=== PATIENT | male | born 1955 | race Caucasian/White ===

== ENCOUNTER 2020-10-19 13:22 | Emergency (ER) | payer MEDICARE, SELFPAY ==
[2020-10-19 13:35] VITALS: BP 146/84; PULSE 95; RESP 18; TEMP 36.8; O2SAT 98; BMI 29.0
--- NOTE | 2020-10-19 14:17 | HMH.EDUTC ---
[facility] [place] Clinical Impression: UTI (urinary tract infection) Qualifiers: Urinary tract infection type: site unspecified Hematuria presence: without hematuria Qualified Code(s): N39.0 - Urinary tract infection, site not specified Disposition: Home, Self-Care Condition on Discharge: Good Instructions: Urinary Tract Infection, DI for Urinary Tract Infection (UTI), Cefdinir Additional Instructions: *Increase fluids. Water not Soda or Tea *Start antibiotic immediately and be sure to take as ordered for the FULL length of time although you should start to see improvement over the next 48 hours *Be SURE to follow up anytime for new or worsening symptoms with your family doctor. AND in 48 hours for urine culture results with your family doctor, if you do not have a doctor then you may call back to the [facility] for urine culture results and further treatment. We do recommend that you choose and establish care with a Primary Care Physician. AND follow up with them in 10-14 days to repeat UA to ensure infection is resolved and blood no longer present *Be sure to let your PCP know that we sent urine cultures from the [facility] so they can follow up to ensure that you area the on the correct antibiotic Call your doctor office and make appointment for 48 hours (2 days from today) to follow up and get the results of your urine culture and further treatment Make sure to follow for your urine culture results and stop medication if no growth of bacteria Return if needed Follow up with your Family Doctor if no improvement or any worsening of symptoms Prescriptions: Cefdinir [Omnicef 300mg Capsule] 300 mg PO BID #20 cap Transmission Status: Pending to [id number] Referrals: Jocelyn Khan MD [Primary Care Provider] - As needed Time of Disposition: 14:26 Medical Decision Making - Ryan Inquiry Pt receiving controlled substance: No Ryan was queried for this patient: No Vital Signs: 10/19/20 13:35 Temperature 98.2 F Temperature Source Oral Pulse Rate [Right Brachial] 95 H Respiratory Rate 18 Blood Pressure [Right Arm] 146/84 H Blood Pressure Mean [Right Arm] 104 Blood Pressure Source [Right Arm] Automatic Cuff Blood Pressure Position [Right Arm] Sitting 02 Sat by Pulse Oximetry 98 Oxygen Delivery Method Room Air - Lab Data Lab results reviewed: Yes: I reviewed the patient's lab results. [facility] [place] HPI - General Stated complaint: possible UTI Time Seen by Provider: 10/19/20 14:17 Mode of Arrival: Ambulatory Source of Information: Patient Limitations: No Limitations Description of Symptoms (Recalled from Triage Doc. by RN): PATIENT C/O POSSIBLE UTI AND/OR PROSTATE PROBLEMS HEENT Symptoms (Recalled from RN notes): No Resp Symptoms (Recalled from RN notes): No Skin Symptoms (Recalled from RN notes): No MS Symptoms (Recalled from RN notes): No Functional Status (Recalled from RN notes): WNL - History of Present Illness Provider Complaint: Patient state that he thinks he may have a UTI States that he has been having urinary frequency and urgency and only urinating small amounts at a time State that he has also been having some burning with urination and similar to when he had a UTI many years ago Denies fever denies blood in urine - Related Data Previous Rx's Medication Instructions Recorded Cefdinir [Omnicef 300mg Capsule] 300 mg PO BID #20 cap 10/19/20 Allergies Allergy/AdvReac Type Severity Reaction Status Date / Time No Known Allergies Allergy Verified 10/19/20 14:10 - Worker's Comp Is this a Worker's Comp case?: No [facility] History - Hepatitis A Screen Drug use history?: No High risk sexual behaviors?: No History of sexually transmitted infection?: No Currently employed?: No Childcare worker?: No Do you have indoor plumbing?: Yes Do you have electricity?: Yes Attestation statement:: This patient has been screened for Hepatitis A risk factors. I have reviewed the patient's past medical histo
[2020-10-19 14:33] VITALS: BP 146/84; PULSE 95; RESP 18; TEMP 36.8; O2SAT 98
[2020-10-19 20:26] LABS: Apearance,Urine Clear (Clear); Bilirubin,Urine Negative (Negative); Blood, Urine Negative (Negative); Color,Urine Yellow (Yellow); Glucose,Urine (UA) Negative (Negative); Ketones,Urine Negative (Negative); Protein,Urine Negative (Negative); Specific Gravity, Urine 1.025 (1.005-1.030); UTC Leukocyte Esterase,Urine Trace (Negative); Urobilinogen,Urine 0.2 EU/dl (0.2)
[2020-10-19 20:27] LABS: UTC Nitrate,Urine Negative (Negative)
== END 2020-10-19 14:35 | disposition home or self-care (01) ==
PROVIDERS: Emergency Provider Nurse Practitioner; PCP Family Medicine
DX: N30.00 Acute cystitis without hematuria (principal); E78.5 Hyperlipidemia, unspecified; I10 Essential (primary) hypertension
CPT/HCPCS: G0463; 81003; 87086; 87088; 87186; 99202

== ENCOUNTER 2021-06-16 15:09 | Emergency (ER) | payer MEDICARE, SELFPAY ==
[2021-06-16 15:19] VITALS: BP 170/90; PULSE 94; RESP 18; O2SAT 98; BMI 31.6
[2021-06-16 15:41] VITALS: BP 175/91; PULSE 95; RESP 16; TEMP 36.8; O2SAT 95; BMI 31.6
--- NOTE | 2021-06-16 16:08 | HMH.EDUTC ---
[facility] [place] Impression: Low back pain with sciatica Qualifiers: Chronicity: acute Back pain laterality: left Sciatica laterality: sciatica of left side Qualified Code(s): M54.42 - Lumbago with sciatica, left side Disposition: Home, Self-Care Condition on Discharge: Good Instructions: DI for Low Back Pain, DI for Back Pain With Sciatica Additional Instructions: Go home and rest. It would be best if you rested tomorrow too. No heavy lifting. No twisting. Take the oral medications as directed. The muscle relaxer (cyclobenzaprine-flexeril) will make you drowsy, so don't drive or operate heavy machinery after taking it. Don't start the oral steroids (medrol dose pack) until tomorrow, since you had the shots in here today. Follow up with your regular doctor. GO TO THE ER FOR ANY WORSENING SYMPTOMS OR CONCERN, ESPECIALLY BOWEL OR BLADDER ISSUES, SADDLE AREA NUMBNESS, FEVER, ETC Prescriptions: Cyclobenzaprine HCl [Cyclobenzaprine 10mg Tab] 10 mg PO BIDP PRN #20 tab PRN Reason: Muscle Spasm Transmission Status: Pending to [id number] methylPREDNISolone [Medrol] 4 mg PO DIRECTED 6 Days #21 packet Transmission Status: Pending to [id number] Referrals: Jocelyn Khan MD [Primary Care Provider] - Time of Disposition: 16:26 Medical Decision Making - Medical Records Medical records reviewed: No: I reviewed the patient's medical records. - Ryan Inquiry Pt receiving controlled substance: No Vital Signs: 06/16/21 15:19 06/16/21 15:41 Temperature 98.3 F Temperature Source Oral Pulse Rate [Left Radial] 94 H 95 H Respiratory Rate 18 16 Blood Pressure [Right Arm] 170/90 H 175/91 H Blood Pressure Mean [Right Arm] 116 119 Blood Pressure Source [Right Arm] Automatic Cuff Automatic Cuff Blood Pressure Position [Right Arm] Sitting Sitting 02 Sat by Pulse Oximetry 98 95 Oxygen Delivery Method Room Air Room Air [facility] [place] - General Stated complaint: back pain no accident Time Seen by Provider: 06/16/21 16:08 Mode of Arrival: Ambulatory Source of Information: Patient Limitations: No Limitations Description of Symptoms (Recalled from Triage Doc. by RN): back pain HEENT Symptoms (Recalled from RN notes): No Resp Symptoms (Recalled from RN notes): No Skin Symptoms (Recalled from RN notes): No MS Symptoms (Recalled from RN notes): Yes Functional Status (Recalled from RN notes): na - History of Present Illness Provider Complaint: He states that for the past 3 days he has had left lower back pain that radiates down his left leg. He denies any known injury. He has a history of this pain that flares up at times. - Related Data Previous Rx's Medication Instructions Recorded Cefdinir [Omnicef 300mg Capsule] 300 mg PO BID #20 cap 10/19/20 Cyclobenzaprine HCl 10 mg PO BIDP PRN #20 tab 06/16/21 [Cyclobenzaprine 10mg Tab] methylPREDNISolone [Medrol] 4 mg PO DIRECTED 6 Days #21 06/16/21 packet Allergies Allergy/AdvReac Type Severity Reaction Status Date / Time No Known Allergies Allergy Verified 10/19/20 14:10 - Worker's Comp Is this a Worker's Comp case?: No Is this an H Worker's Comp?: No Is this a Gian Worker's Comp?: No H History - Hepatitis A Screen Drug use history?: No High risk sexual behaviors?: No History of sexually transmitted infection?: No Currently employed?: No Childcare worker?: No Do you have indoor plumbing?: Yes Do you have electricity?: Yes Attestation statement:: This patient has been screened for Hepatitis A risk factors. I have reviewed the patient's past medical history: Yes Medical History: Reports:: Diabetes Mellitus Type 2 - Social History Alcohol Intake: never Occupational Status: other ROS Obtained: Yes All systems reviewed & no additional complaints - Constitutional Constitutional: Denies chills, Denies fever(s) - Eyes Eyes: Denies eye discharge - ENT Ears, Nose, Mouth, and Throat: Denies d
[2021-06-16 16:35] VITALS: BP 175/91; PULSE 95; RESP 18; TEMP 36.8; O2SAT 95
== END 2021-06-16 16:38 | disposition home or self-care (01) ==
PROVIDERS: Emergency Provider Nurse Practitioner Family; PCP Family Medicine
DX: M54.42 Lumbago with sciatica, left side (principal); E11.9 Type 2 diabetes mellitus without complications
CPT/HCPCS: G0463; 99211

== ENCOUNTER 2021-06-23 22:02 | Emergency (ER) | payer MEDICARE, SELFPAY ==
[2021-06-23 22:16] VITALS: BP 162/97; PULSE 88; RESP 16; TEMP 36.6; O2SAT 96; BMI 31.8
--- NOTE | 2021-06-23 22:32 | HMH.EDBACK ---
ED Disposition Clinical Impression: Lumbar radiculopathy Disposition: Home, Self-Care Condition on Discharge: Good Instructions: DI for Back Pain With Sciatica Additional Instructions: call pcp this pm Referrals: Jocleyn Khan MD [Primary Care Provider] - - Critical Care Critical Care Time: No Attestation: On 06/23/21, the high probability of a clinically significant, sudden or life threatening deterioration of the following system(s) required my full and direct attention, intervention and personal management. The time I documented below is in addition to time spent performing reported procedures but includes the following listed in this critical care notation. Medical Decision Making - Medical Records Medical records reviewed: Yes: I reviewed the patient's medical records. - Ryan Inquiry Pt receiving controlled substance: No Vital Signs: 06/23/21 22:16 Temperature 97.8 F Temperature Source Oral Pulse Rate [Right Brachial] 88 Respiratory Rate 16 Blood Pressure [Right Arm] 162/97 H Blood Pressure Mean [Right Arm] 118 Blood Pressure Source [Right Arm] Automatic Cuff Blood Pressure Position [Right Arm] Sitting 02 Sat by Pulse Oximetry 96 Oxygen Delivery Method Room Air - Lab Data Lab results reviewed: Yes: I reviewed the patient's lab results. Orders (Tests/Meds): ORDERS Category Date Time Status XR lumbar spine 2-3V Stat Exams 06/23/21 22:39 Ordered XR pelvis 1-2V Stat Exams 06/23/21 22:39 Ordered XR thoracic spine 3V Stat Exams 06/23/21 22:39 Ordered - Radiology Data #1 Image(s): T-Spine, L-Spine, Pelvis Image Reviewed: Yes I reviewed the patient's radiology image Preliminary Findings: No Fracture Seen Medical Decision Narrative: will ask pt to see pcp this week Back Pain HPI - General Chief Complaint: Back Pain/Injury Stated Complaint: hip and back pain Time Seen by Provider: 06/23/21 22:32 Mode of Arrival: Family Vehicle Source of Information: Patient, Medical Record Limitations: No Limitations Description of Symptoms (Recalled from ER Triage Doc. by RN): seen in [facility] for sciatica and treated with steroids, muscle relaxers and NSAIDS. stated he has finished his steroids and has not followed up with pcp but still hurts and needs relief. pain is primarily low back and hip area. - History of Present Illness HPI Narrative: pt with acute back with no fall with rad to lt leg - no fever/rash or trauma MD Complaint: back pain Onset (ago): day(s) Similar Symptoms Previously: Yes Location: lumbar spine Severity: moderate Exacerbating factors: movement Context: bending Associated symptoms: denies other symptoms - Related Data Previous Rx's Medication Instructions Recorded Cefdinir [Omnicef 300mg Capsule] 300 mg PO BID #20 cap 10/19/20 Cyclobenzaprine HCl 10 mg PO BIDP PRN #20 tab 06/16/21 [Cyclobenzaprine 10mg Tab] methylPREDNISolone [Medrol] 4 mg PO DIRECTED 6 Days #21 06/16/21 packet Allergies Allergy/AdvReac Type Severity Reaction Status Date / Time No Known Allergies Allergy Verified 10/19/20 14:10 [facility] History - Hepatitis A Screen Drug use history?: No High risk sexual behaviors?: No History of sexually transmitted infection?: No Currently employed?: No Childcare worker?: No Do you have indoor plumbing?: Yes Do you have electricity?: Yes Attestation statement:: This patient has been screened for Hepatitis A risk factors. I have reviewed the patient's past medical history: Yes Medical History: Reports:: Diabetes Mellitus Type 2 - Social History Alcohol Intake: never Occupational Status: other ROS Obtained: Yes All systems reviewed & no additional complaints - Constitutional Constitutional: Denies fever(s) - Eyes Eyes: Denies change in vision - ENT Ears, Nose, Mouth, and Throat: Denies sore throat - Cardiovascular Cardiovascular: Denies chest pain - Respiratory Respiratory: Denies shortness of breath - G
--- NOTE | 2021-06-23 22:39 | XR_ITS ---
PROCEDURE INFORMATION: Exam: XR Lumbosacral Spine Exam date and time: 06/23/2021 10:39 PM Age: 65 years old Clinical indication: Sciatica; Patient HX: Pain around si joint on left side and radiates to upper part of left leg, no known injury, pain for 1 month; Additional info: Left side pain TECHNIQUE: Imaging protocol: XR of the lumbosacral spine. Views: 2 or 3 views. COMPARISON: CR XR PELVIS 1-2V 06/23/2021 10:49 PM FINDINGS: Bones/joints: Mild levoconvex lumbar curvature. No spondylolisthesis. Slight anterior wedging of T12 and L1 appears chronic and is likely physiologic. No evidence of acute fracture. Moderate disc height loss at L5-S1 with vacuum phenomenon. Nxon-ir-phndaivl disc height loss at the remaining lumbar levels, with vacuum phenomenon also present at L4-L5. Multilevel facet osteoarthropathy, which appears moderate to advanced at L4-L5 and L5-S1. Soft tissues: Unremarkable. IMPRESSION: 1. No acute finding. 2. Spondylosis, greatest at the lower lumbar levels.
--- NOTE | 2021-06-23 22:39 | XR_ITS ---
PROCEDURE INFORMATION: Exam: XR Pelvis Exam date and time: 06/23/2021 10:39 PM Age: 65 years old Clinical indication: Pelvic pain; Patient HX: Pain around si joint on left side and radiates to upper part of left leg, no known injury, pain for 1 month; Additional info: Left side pain TECHNIQUE: Imaging protocol: XR pelvis. Views: 1 or 2 view. COMPARISON: No relevant prior studies available. FINDINGS: Bones/joints: Bilateral hip joints appear preserved. Minimal degenerative spurring of the SI joints. Lower lumbar spondylosis. No acute displaced fracture. Soft tissues: Phleboliths in the pelvis. IMPRESSION: 1. No acute finding. 2. Bilateral hip joints are preserved. Minimal SI joint degenerative spurring.
--- NOTE | 2021-06-23 22:39 | XR_ITS ---
PROCEDURE INFORMATION: Exam: XR Thoracic Spine Exam date and time: 06/23/2021 10:39 PM Age: 65 years old Clinical indication: Pain in thoracic spine; Patient HX: Pain around si joint on left side and radiates to upper part of left leg, no known injury, pain for 1 month; Additional info: Left side pain TECHNIQUE: Imaging protocol: XR of the thoracic spine. Views: 3 views. COMPARISON: No relevant prior studies available. FINDINGS: Bones/joints: Mild chronic-appearing anterior wedging of midthoracic vertebral bodies. No evidence of acute fracture. No spondylolisthesis. Mild multilevel thoracic degenerative disc disease. Partially visualized cervical spondylosis, greatest at C5-C6 and C6-C7. Soft tissues: Unremarkable. IMPRESSION: 1. No evidence of acute fracture. 2. Mild chronic-appearing anterior wedging of midthoracic vertebral bodies. 3. Mild thoracic spondylosis. Partially visualized cervical spine degenerative changes.
[2021-06-23 23:29] VITALS: BP 161/91; PULSE 84; RESP 16; TEMP 36.7; O2SAT 97
== END 2021-06-23 23:31 | disposition home or self-care (01) ==
PROVIDERS: Emergency Provider Emergency Medicine; PCP Family Medicine
DX: M54.16 Radiculopathy, lumbar region (principal); E11.9 Type 2 diabetes mellitus without complications
CPT/HCPCS: 72072; 72100; 72170; 96372; 99282

== ENCOUNTER 2021-08-28 14:00 | Outpatient (RCR) | payer MEDICARE, SELFPAY ==
--- NOTE | 2021-07-31 14:26 | HMH.RHREAS ---
Rehab Reassessment Rehab OP Re-assessment Start: 07/31/21 14:19 Freq: Status: Active Protocol: Document 07/31/21 14:19 STEPHANIE (Rec: 07/31/21 14:25 STEPHANIE [id number]) Electronically Signed By Shaan Mckenzie, PT 07/31/21 14:19 Rehab Re-assessment Subjective Subjective Patient reports 65% improvement since start of care. Objective Objective Notes AROM: WFL MMT: WNL Pain: 0/10 today; 4/10 at worst Neuro: decreased LLE radicular symptoms Assessment Progress Assessment Progressing as Expected Assessment Notes Patient has made significant improvements as noted above. Rx has consisted of BLE stretching, core stabilization , mechanical traction and modalities for pain modulation . Patient has had to make work activity modification to avoid exacerbations. Patient continues to have functional limitations with bending, lifting and twisting activities. Patient goals met STG's Goals Not Met LTG's Revised Goals NA Plan Plan Continue with current POC. Frequency of Therapy 2x/week Duration of therapy 4 weeks Time and Billing Re-Eval Time 15 Re-Eval Billing Units 1 PHYSICIAN CERTIFICATION: I certify the specified therapy services for Jayme Navarro are required, authorized, and reviewed every 30 days.
== END 2021-08-28 14:05 | disposition home or self-care (01) ==
LOC: PT 14:00
PROVIDERS: PCP Family Medicine; Visit Provider Family Medicine
DX: M51.36 Other intervertebral disc degeneration, lumbar region (principal); M47.818 Spondylosis without myelopathy or radiculopathy, sacral and sacrococcygeal region
CPT/HCPCS: 97012; 97014; 97110; 97163; 97164; G0283